=== PATIENT | male | born 1955 | race African-American/Black ===

== ENCOUNTER 2019-01-20 20:12 | Inpatient (IN) | payer MEDICARE, OTHER ==
[~2019-01-20] VITALS: Ht 180.3 cm; Wt 66.9 kg
--- NOTE | 2019-01-20 21:10 | ERD ---
ER Documentation Chief Complaint Chief Complaint hypoglycemia 40 on scene, glucagon 1mg IM @ 1999, now 98. nonverbal HPI This a patient who is 76 years old who is nonverbal due to stroke. The patient was at a longterm facility where he was found to be not awake and bit difficult to arouse. They checked his blood sugar and it was 39. EMS arrived and gave him some glucagon IM. The patient then woke up and is back to base line. The sister states that he is back to baseline. I reviewed small labs that were sent with him that were done last week that showed a hemoglobin of 7.7 with some severe prerenal azotemia. The patient is nonverbal unable to communicate with me. The sister states that he has not been getting his tube feeds ROS All systems reviewed and are negative except as per history of present illness. Allergies Allergies: Coded Allergies: No Known Allergy (Unverified , 01/20/19) FmHx Family History: No coronary disease Physical Exam Vitals Vital Signs Date Temp Pulse Resp B/P (MAP) Pulse Ox O2 O2 Flow FiO2 Time Delivery Rate 01/20/19 96.8 62 17 135/71 97 Room Air 21:23 (92) 01/20/19 96.8 64 17 135/71 97 20:23 (92) Physical Exam Const: No acute distress, nonverbal Head: Atraumatic Eyes: Normal Conjunctiva ENT: Normal External Ears, Nose and Mouth. Neck: Full range of motion. No meningismus. Resp: Clear to auscultation bilaterally Cardio: Regular rate and rhythm, no murmurs Abd: Soft, non tender, tympanic/bit distended,. Normal bowel sounds, G-tube is present Skin: No petechiae or rashes Back: No midline or flank tenderness Ext: No cyanosis, or edema Neur: Awake and alert Psych: Unable to obtain Result Diagram: 01/20/19221801/20/192218 Results 24 hrs Laboratory Tests Test 01/20/19 20:19 01/20/19 22:19 Bedside Glucose 98 mg/dL White Blood Count 8.3 10^3/ul Red Blood Count 2.96 10^6/ul Hemoglobin 8.7 g/dl Hematocrit 28.1 % Mean Corpuscular Volume 94.9 fl Mean Corpuscular Hemoglobin 29.4 pg Mean Corpuscular Hemoglobin Concent 31.0 g/dl Red Cell Distribution Width 18.0 % Platelet Count 231 10^3/UL Mean Platelet Volume 9.7 fl Immature Granulocytes % 0.200 % Neutrophils % 78.2 % Lymphocytes % 13.3 % Monocytes % 6.1 % Eosinophils % 1.8 % Basophils % 0.4 % Nucleated Red Blood Cells % 0.2 /100WBC Immature Granulocytes # 0.020 10^3/ul Neutrophils # 6.5 10^3/ul Lymphocytes # 1.1 10^3/ul Monocytes # 0.5 10^3/ul Eosinophils # 0.2 10^3/ul Basophils # 0.0 10^3/ul Nucleated Red Blood Cells # 0.0 10^3/ul Sodium Level 142 mmol/L Potassium Level 3.8 mmol/L Chloride Level 108 mmol/L Carbon Dioxide Level 27 mmol/L Anion Gap 7 Blood Urea Nitrogen 58 mg/dl Creatinine 2.76 mg/dl Est Glomerular Filtrat Rate mL/min 28 mL/min Glucose Level 201 mg/dl Calcium Level 9.1 mg/dl Total Bilirubin 0.1 mg/dl Direct Bilirubin 0.00 mg/dl Indirect Bilirubin 0.1 mg/dl Aspartate Amino Transf (AST/SGOT) 45 IU/L Alanine Aminotransferase (ALT/SGPT) 29 IU/L Alkaline Phosphatase 166 IU/L Total Protein 7.0 g/dl Albumin 2.9 g/dl Globulin 4.10 g/dl Albumin/Globulin Ratio 0.70 Procedures/MDM Family says ABD is way more distended than usual, and he usually has a 'flat' abdomen Willl get CT ABD Say he has renal insuff ,and he has not been urinating as much. Says he is straining a lot to have BM w minimal to no stool Will admit for prerenal azotemia, and ABD eval and possible constipation issue/ make sure g tube in right place. CT pending. Departure Diagnosis: Primary Impression: Hypoglycemia Additional Impression: Constipation Constipation type: unspecified constipation type Qualified Codes: K59.00 - Constipation, unspecified Condition: Stable TOMEKA GODFREY DO Jan 20, 2019 21:10
[2019-01-20] MEDS ORDERED: SOD CHLORIDE 0.9% 1,000 ML IV SCH (23:19)
[2019-01-20] MEDS ORDERED: ACETAMINOPHEN 325 MG TAB PO PRN (23:30)
[2019-01-20] MEDS ORDERED: ONDANSETRON 4 MG INJ IV PRN (23:30)
[2019-01-21] MEDS ORDERED: NACL 0.9% 3 ML SYG IV SCH (01:30)
[2019-01-21] MEDS ORDERED: ALBUTEROL/IPRATROPIUM (NEB) 3 ML AMP HHN PRN (01:30)
[2019-01-21] MEDS ORDERED: ONDANSETRON 4 MG INJ IV PRN (01:30)
[2019-01-21] MEDS ORDERED: ACET325T45 PO (02:26)
[2019-01-21] MEDS ORDERED: ESCI10TA48 GTB (02:26)
[2019-01-21] MEDS ORDERED: MULT-105 GTB (02:26)
[2019-01-21] MEDS ORDERED: GLUC1KIT IJ (02:26)
[2019-01-21] MEDS ORDERED: DOCU50LI23 GTB (02:26)
[2019-01-21] MEDS ORDERED: AMLO-147 GTB (02:26)
[2019-01-21] MEDS ORDERED: PANT40TA3 GTB (02:26)
[2019-01-21] MEDS ORDERED: INSU100I27 SQ (02:26)
[2019-01-21] MEDS ORDERED: ISOS5TAB2 GTB (02:26)
[2019-01-21] MEDS ORDERED: HYDR-3672 GTB (02:26)
[2019-01-21] MEDS ORDERED: KEP100S GTB (02:39)
[2019-01-21] MEDS ORDERED: CARV25TA79 GTB (02:39)
[2019-01-21] MEDS: DEXTROSE 5%-0.45% NACL 1,000 ML IV SCH ×2 (06:30→13:42)
--- NOTE | 2019-01-21 07:52 | HP ---
Date/Time of Note Date/Time of Note DATE: 01/21/19 TIME: 07:47 Assessment/Plan VTE Prophylaxis Pharmacological prophylaxis: heparin Lines/Catheters IV Catheter Type (from Nrsg): Peripheral IV Assessment/Plan Assessment/Plan 1. Hypoglycemia: Patient on insulin -Reportedly family stated was because of decreased G-tube feeding -Frequent Accu-Cheks -Start tube feeding -CT abdomen/pelvis without gastrostomy issue 2. Moderate pericardial and pleural effusion -2D echo -Cardiology consult 3. Presumed acute on CKD -Renal ultrasound and nephrology consult -Urine electrolytes -Place P[facility] 4. Hypertension: Continue home meds. Adjust as needed 5. Anemia: Likely of chronic disease -Will work-up for GI bleed and iron deficiency, so check FOBT and iron/ferritin 6. Chronic encephalopathy: Supportive care Result Diagram: 01/21/19 0545 01/21/19 0545 Results 24hrs Laboratory Tests Test 01/20/19 20:19 01/20/19 22:19 01/21/19 05:45 Bedside Glucose 98 White Blood Count 8.3 7.3 Red Blood Count 2.96 L 3.05 L Hemoglobin 8.7 L 8.9 L Hematocrit 28.1 L 28.4 L Mean Corpuscular Volume 94.9 93.1 Mean Corpuscular Hemoglobin 29.4 29.2 Mean Corpuscular Hemoglobin Concent 31.0 L 31.3 L Red Cell Distribution Width 18.0 H 18.0 H Platelet Count 231 248 Mean Platelet Volume 9.7 10.1 Immature Granulocytes % 0.200 0.400 Neutrophils % 78.2 H 60.9 Lymphocytes % 13.3 L 24.8 Monocytes % 6.1 10.9 Eosinophils % 1.8 2.6 Basophils % 0.4 0.4 Nucleated Red Blood Cells % 0.2 H 0.5 H Immature Granulocytes # 0.020 0.030 Neutrophils # 6.5 4.5 Lymphocytes # 1.1 1.8 Monocytes # 0.5 0.8 Eosinophils # 0.2 0.2 Basophils # 0.0 0.0 Nucleated Red Blood Cells # 0.0 0.0 Sodium Level 142 142 Potassium Level 3.8 3.6 Chloride Level 108 110 Carbon Dioxide Level 27 27 Anion Gap 7 5 Blood Urea Nitrogen 58 H 59 H Creatinine 2.76 H 2.64 H Est Glomerular Filtrat Rate mL/min 28 L 30 L Glucose Level 201 85 # Calcium Level 9.1 8.9 Total Bilirubin 0.1 L 0.2 Direct Bilirubin 0.00 0.00 Indirect Bilirubin 0.1 0.2 Aspartate Amino Transf (AST/SGOT) 45 46 Alanine Aminotransferase (ALT/SGPT) 29 30 Alkaline Phosphatase 166 H 170 H Total Protein 7.0 7.0 Albumin 2.9 L 2.9 L Globulin 4.10 H 4.10 H Albumin/Globulin Ratio 0.70 0.70 Magnesium Level 2.4 Triglycerides Level 139 Cholesterol Level 120 LDL Cholesterol, Calculated 47 HDL Cholesterol 45 Cholesterol/HDL Ratio 2.6 HPI/ROS Admit Date/Time Admit Date/Time Jan 20, 2019 at 23:20 Hx of Present Illness This is a 64-year-old male with history of chronic encephalopathy, G-tube, seizure, hypertension, CKD, insulin-dependent diabetes, possible CAD who was brought from [facility] for hypoglycemia. Patient was noted to be more altered than usual. She attempts to speak and say his name and some simple words otherwise gathering information from the patient has been difficult. He knew that he was in the hospital. At SNF his blood glucose was found to be 40. Patient has a G- tube and reportedly, according to family, it is because of inadequate G-tube feeding. Upon arrival to the ER he was 98 but has been as high as 200. Recent was 85. He is also found to have a creatinine of 2.76, hemoglobin 8.7. Imaging shows moderate bilateral pleural effusion, moderate to large pericardial effus ion and large left inguinal hernia. Chest x-ray also shows patchy bilateral lymph PMH/Family/Social Past Medical History Past Surgical History Past Surgical Hx: other Family History Significant Family History: no pertinent family hx Social History Alcohol Use: other Smoking Status: Unknown if ever smoked Drug Use: other Exam Constitutional: other (no acute distress) Head: normocephalic ENMT: nl external ears & nose Neck: supple Respiratory: normal air movement Cardiovascular: nl pulses Gastrointestinal: soft Extremities: normal pulses Medications Current Medications Sodium Chloride 1,000 ml @ 80 mls/hr [id number] IV ; Start 01/20/19 at 23:19; Stop 01/21/19 at 11:48 Ondansetron HCl (Zofran Inj) 4 mg BRIDGE ORDER PRN IV NAUSEA/VOMITING; Start 01/20/19 at 23:30; Stop 01/21/19 at 23:29 Acetaminophen (Tylenol Tab) 650 mg ER BRIDGE PRN PO .MILD PAIN 1-3 OR TEMP; Start 01/20/19 at 23:30; Stop 01/21/19 at 23:29 Dextrose/Sodium Chloride 1,000 ml @ 80 mls/hr [id number] IV Last administered on 01/21/19at 06:30; Admin Dose 80 MLS/HR; Start 01/21/19 at 01:12 IV Flush (NS 3 ml) 3 ml PER PROTOCOL IV ; Start 01/21/19 at 01:30 Ondansetron HCl (Zofran Inj) 4 mg Q6H PRN IV NAUSEA/VOMITING; Start 01/21/19 at 01:30 Famotidine (Pepcid Iv) 20 mg Q12 IV ; Start 01/21/19 at 09:00 Heparin Sodium (Porcine) (Heparin (5000 Units/1ml)) 5,000 unit Q12 SC ; Start 01/21/19 at 09:00 Albuterol/ Ipratropium (Duoneb) 3 ml Q2H RESP THERAPY PRN HHN SHORTNESS OF BREATH; Start 01/21/19 at 01:30 Coded Allergies: No Known Allergy (Unverified , 01/20/19) Social History Smoking Status: Never smoker Exam/Review of Systems Vital Signs Vitals Vital Signs Date Temp Pulse Resp B/P (MAP) Pulse Ox O2 O2 Flow FiO2 Time Delivery Rate 01/21/19 98.0 74 20 156/86 98 Room Air 07:35 (109) ROSALIA DECKER MD Jan 21, 2019 07:52
[2019-01-21 08:02] VITALS: BP 176/88; PULSE 76; RESP 18
[2019-01-21] MEDS: FAMOTIDINE 20 MG INJ IV SCH ×2 (10:02→20:58)
[2019-01-21] MEDS: HEPARIN 5,000 UNIT/1 ML VIAL SC SCH ×2 (10:11→20:59)
[2019-01-21 10:25] VITALS: Ht 180.3 cm; Wt 66.9 kg
[2019-01-21] MEDS ORDERED: AMLODIPINE 10 MG TAB GTB SCH (11:30)
[2019-01-21] MEDS: ISOSORBIDE DINITRATE 10 MG TAB PO SCH ×2 (12:28→19:41)
[2019-01-21 13:00] VITALS: BP 150/74; PULSE 72
[2019-01-21] MEDS: ACCU-CHEK XX SCH ×3 (13:00→21:00)
[2019-01-21] MEDS ORDERED: ISOSORBIDE DINITRATE 5 MG TAB GTB SCH (13:00)
[2019-01-21 13:43] VITALS: BP 168/79; PULSE 75; RESP 16
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
[2019-01-21] MEDS: METOCLOPRAMIDE 5 MG TAB PO SCH ×2 (17:49→20:59)
[2019-01-21] MEDS: FUROSEMIDE 40 MG INJ IV SCH ×4 (17:50→22:29)
[2019-01-21 20:00] VITALS: BP 175/83; PULSE 81; RESP 19
[2019-01-21] MEDS: DOCUSATE SODIUM 10 MG/ML (10ML CUP) GTB SCH (20:58)
[2019-01-21] MEDS ORDERED: DOCUSATE SODIUM 10 MG/ML (10ML CUP) GTB SCH (21:00)
[2019-01-21 22:01] VITALS: BP 148/76; PULSE 74
[2019-01-21] MEDS: LEVETIRACETAM (100 MG/ML PO SYG) GTB SCH (22:03)
[2019-01-22] VITALS (9 sets, daily range): BP systolic 141–176; BP diastolic 67–86; PULSE 74–88; RESP 16–20
[2019-01-22] MEDS: ACCU-CHEK XX SCH ×6 (01:00→21:44)
[2019-01-22] MEDS: DOCUSATE SODIUM 10 MG/ML (10ML CUP) GTB SCH ×2 (09:13→20:59)
[2019-01-22] MEDS: MULTIVITAMINS/MINERALS TAB PO SCH (09:13)
[2019-01-22] MEDS: METOCLOPRAMIDE 5 MG TAB PO SCH ×4 (09:13→21:06)
[2019-01-22] MEDS: ESCITALOPRAM 10 MG TAB GTB SCH (09:14)
[2019-01-22] MEDS: ISOSORBIDE DINITRATE 10 MG TAB PO SCH ×3 (09:14→21:06)
[2019-01-22] MEDS: LEVETIRACETAM (100 MG/ML PO SYG) GTB SCH ×2 (09:14→21:05)
[2019-01-22] MEDS: FAMOTIDINE 20 MG INJ IV SCH ×2 (09:15→21:06)
[2019-01-22] MEDS: FUROSEMIDE 40 MG INJ IV SCH ×3 (09:15→21:06)
[2019-01-22] MEDS ORDERED: GLUCOSE GEL 15 GRAM TUBE BUCCAL PRN (15:30)
[2019-01-22] MEDS ORDERED: GLUCAGON 1 MG INJ IM PRN (15:30)
[2019-01-22] MEDS ORDERED: GLUCOSE GEL 15 GRAM TUBE PO PRN ×2 (15:30)
[2019-01-22] MEDS ORDERED: DEXTROSE 50% 50 ML SYRINGE IV PRN ×2 (15:30)
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
--- NOTE | 2019-01-22 16:33 | PDOCDIS ---
Discharge Instructions CONDITION [id number] Patient Condition: [id number] Fair HOME CARE INSTRUCTIONS: [id number] Special Diet: Zsyiv6g oral grat feeds; tube feeds ACTIVITY: [id number] Activity Restrictions: [id number] Slowly Increase Activity Do not Drive FOLLOW UP/APPOINTMENTS Follow-up Plan [facility] follow GRAEME CHAVEZ MD Jan 22, 2019 16:33
[2019-01-22] MEDS: INSULIN ASPART [NOVOLOG] 3 ML PEN SC SCH ×2 (17:26→21:00)
--- NOTE | 2019-01-22 17:57 | RADRPT ---
Echocardiogram Report Patient Name: Mark NUNN ID: [id number] : 1955 (64y 1m)Study Date: 01/22/2019 7:08:10 AM Gender: Jayycession #: [id number] Tech: Devang Douglas [facility] Location: [facility] Ref.Physician: GRAEME CHAVEZ Height(Cm): BSA: Weight(Kg): Quality: AdequateAccount #: Procedures: Echocardiographic Report: Transthoracic echocardiogram with complete 2D, M-Mode, and doppler examination. Indications: Ascites. Measurements: 2D/M Mode Doppler Measurement Value Normal Range Measurement Value Normal Range LVIDd 2D 5.1 [ 4.2 - 5.8 ] cm AV Peak Luis Miguel 1.9 [ 100.0 - 170.0 ] cm/sec LVIDs 2D 3.5 [ 2.5 - 4.0 ] cm AV Peak PG 15.0 [ 2.0 - 9.0 ] mmHg LVPWd 2D 1.3 [ 0.6 - 1.0 ] cm LVOT Peak Luis Miguel 0.8 [ 70.0 - 110.0 ] cm/sec IVSd 2D 1.2 [ 0.6 - 1.0 ] cm LVOT Peak PG 2.0 [ 2.0 - 6.0 ] mmHg AoR Diam 2D 3.0 [ 2.6 - 3.4 ] cm MV E Peak Luis Miguel 0.8 [ 60.0 - 130.0 ] cm/sec EDV 2D 122.0 [ 62.0 - 150.0 ] ml MV A Peak Luis Miguel 1.0 [ 100.0 - 120.0 ] cm/sec ESV 2D 51.2 [ 21.0 - 61.0 ] ml MV E/A 0.7 [ 0.8 - 1.5 ] ratio EF 2D 58.0 [ 52.0 - 72.0 ] percent MV Decel Time 173 [ 104 - 258 ] msec LA Dimen 2D 3.4 [ 3.0 - 4.0 ] cm Lat E` Luis Miguel 0.1 [ 10.0 - 15.0 ] cm/sec Lateral E/E` 9.8 [ 1.0 - 2.0 ] ratio MV E/A 0.7 [ 0.8 - 1.5 ] ratio TR Peak Luis Miguel 3.1 [ 100.0 - 280.0 ] cm/sec TR Peak PG 39.0 mmHg RVSP 42.0 [ 10.0 - 36.0 ] mmHg RA Pressure 3.0 mmHg Findings: Left Ventricle: Normal left ventricular cavity size. Mild concentric left ventricular hypertrophy. Mild global left ventricular systolic dysfunction. Ejection fraction is visually estimated at 45 %. Tissue Doppler/Mitral Doppler indices are consistent with impaired relaxation (Stage I diastolic dysfunction). Right Ventricle: Normal right ventricular size. Normal right ventricular systolic function. Left Atrium: The left atrium is normal in size. Right Atrium: The right atrium is normal in size. Mitral Valve: Mitral valve leaflets appear mildly thickened. Mild mitral annular calcification. Mild mitral valve regurgitation. Aortic Valve: No significant aortic stenosis or insufficiency. Aortic cusps appear mildly calcified. Tricuspid Valve: Normal appearance of the tricuspid valve. Estimated peak PA systolic pressure 42 mmHg. There is mild tricuspid regurgitation. Pulmonic Valve: Pulmonic valve not well visualized. Pericardium: Moderate pericardial effusion. No echocardiographic evidence to suggest pericardial tamponade. Aorta: Normal aortic root. IVC: Normal size and normal respiratory collapse consistent with normal right atrial pressure. Conclusions: Mild concentric left ventricular hypertrophy with mildly reduced left ventricular systolic function. Grade 1 diastolic dysfucntion. Mild mitral regurgitation. Mild tricuspid regurgitation with mild pulmonary hypertension. Moderate sized circumferential pericardial effusion without evidence of tamponade. Electronically Signed By: Roseline Pereira 2019-01-22 17:57:28 PDT
[2019-01-22] MEDS ORDERED: INSULIN ASPART [NOVOLOG] 3 ML PEN SC SCH (18:00)
[2019-01-22] MEDS ORDERED: ACETAMINOPHEN 1000MG/100ML IV 100 ML IVPB ONE (20:30)
[2019-01-23] MEDS: ACCU-CHEK XX SCH ×4 (00:09→13:14)
[2019-01-23 02:00] VITALS: BP 167/77; PULSE 75; RESP 18
[2019-01-23] MEDS ORDERED: ACCU-CHEK XX SCH (02:00)
[2019-01-23 05:03] VITALS: BP 168/74
[2019-01-23] MEDS ORDERED: hydrALAzine 20 MG INJ IV ONE (05:30)
[2019-01-23 06:51] VITALS: BP 171/70
[2019-01-23 07:27] VITALS: BP 162/77; PULSE 72; RESP 16
[2019-01-23] MEDS: LEVETIRACETAM (100 MG/ML PO SYG) GTB SCH (08:14)
[2019-01-23] MEDS: DOCUSATE SODIUM 10 MG/ML (10ML CUP) GTB SCH (08:14)
[2019-01-23] MEDS: ESCITALOPRAM 10 MG TAB GTB SCH (08:14)
[2019-01-23] MEDS: ISOSORBIDE DINITRATE 10 MG TAB PO SCH ×2 (08:15→13:15)
[2019-01-23] MEDS: MULTIVITAMINS/MINERALS TAB PO SCH (08:15)
[2019-01-23] MEDS: FAMOTIDINE 20 MG INJ IV SCH (08:16)
[2019-01-23 10:09] VITALS: BP 166/75; PULSE 76
[2019-01-23] MEDS ORDERED: INSULIN ASPART [NOVOLOG] 3 ML PEN SC SCH (12:00)
[2019-01-23 14:09] VITALS: BP 155/67; PULSE 72; RESP 16
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
== END 2019-01-23 15:15 | disposition hospice, inpatient (51) | DRG 638 ==
LOC: E/R 20:12 → 5EC 23:20
PROVIDERS: ADMIT Internal Medicine; ATTEND Internal Medicine
DX: E11.649 Type 2 diabetes mellitus with hypoglycemia without coma (principal); G93.49 Other encephalopathy; I31.3 Pericardial effusion (noninflammatory); R18.8 Other ascites; N17.9 Acute kidney failure, unspecified; E11.22 Type 2 diabetes mellitus with diabetic chronic kidney disease; I12.9 Hypertensive chronic kidney disease with stage 1 through stage 4 chronic kidney disease, or unspecified chronic kidney disease; N18.4 Chronic kidney disease, stage 4 (severe); K59.00 Constipation, unspecified; D63.8 Anemia in other chronic diseases classified elsewhere; Z66 Do not resuscitate
CPT/HCPCS: 36415; 71045; 74176; 80048; 80053; 80061; 82270; 82962; 83036; 83735; 84100; 84443; 85025; 85610; 87081; 92610; 93306; 94664; 97161; J0131; J0360; J1644; J1815; J1940; J7030; J7042